=== PATIENT | female | born 1990 | race African-American/Black ===

== ENCOUNTER 2016-10-22 05:34 | Emergency (ER) | payer BC, MEDICAID ==
[~2016-10-22] VITALS: Ht 165.1 cm; Wt 78.0 kg
[2016-10-22 08:07] VITALS: BP 117/71
[2016-10-22] MEDS ORDERED: LIDOCAINE HCL 1%/EPI 1:200,000 30 ML VIAL MC ONE (09:00)
[2016-10-22] MEDS ORDERED: ACETAMINOPHEN 325MG TABLET PO ONE (09:00)
[2016-10-22] MEDS ORDERED: LIDOCAINE HCL/EPINEPHRINE 1%-EPI 1:100,000 30 ML VIAL INFIL ONE (09:00)
== END 2016-10-22 10:58 | disposition home or self-care (01) ==
LOC: ER 07:14
DX: S01.01XA Laceration without foreign body of scalp, initial encounter (principal); R51 Headache; T79.7XXA Traumatic subcutaneous emphysema, initial encounter; M25.562 Pain in left knee; V49.40XA Driver injured in collision with unspecified motor vehicles in traffic accident, initial encounter; Y93.89 Activity, other specified; Y92.410 Unspecified street and highway as the place of occurrence of the external cause; F17.210 Nicotine dependence, cigarettes, uncomplicated
CPT/HCPCS: 12001; 70450; 73562; 81025; 99284; A4217; Z7610; 12052; 99283